=== PATIENT | female | born 1945 | race Caucasian/White ===

== ENCOUNTER 2017-07-29 10:23 | Emergency (ER) | payer MEDICARE, OTHER ==
[~2017-07-29] VITALS: Ht 172.7 cm; Wt 92.5 kg
[2017-07-29 10:31] VITALS: BP 155/80; PULSE 68; RESP 16; TEMP 97.6; O2SAT 99
[2017-07-29] MEDS ORDERED: SODIUM CHLOR 0.9% 1000 ML INJ 1,000 ML IV SCH (10:41)
[2017-07-29] MEDS ORDERED: SODIUM CHLORIDE 0.9% FLUSH 10 ML FLUSH IV FLUSH PRN (10:45)
--- NOTE | 2017-07-29 10:58 | PD ---
HPI Chief Complaint: Abdominal Pain Time Seen by Provider: 10:35 Travel History International Travel<30 days: No Contact w/Intl Traveler<30days: No Traveled to known affect area: No History of Present Illness HPI This is a 72-year-old female who presents to the emergency department with 2 days of right lower quadrant abdominal pain, constant, moderate severity, waxing and waning through the night time to keeping her up from sleep associated with an episode of vomiting yesterday and then multiple dry heaves this morning. She did have some "spaghetti like stool" this morning. She denies any fevers or chills. She has no appetite. She's never had pain like this before. She's never had any abdominal surgeries. [facility] Past Medical History Narrative Medical arthritis LMP: MENOPAUSAL Social History Tobacco Use: No Allergies-Medications (Allergen,Severity, Reaction): Coded Allergies: No Known Allergies (Unverified , 07/29/17) Reported Meds & Prescriptions Reported Meds & Active Scripts Active Reported Methotrexate 2.5 Mg Tab 10 Mg PO Q7D Evista (Raloxifene HCl) 60 Mg Tab 60 Mg PO DAILY Multi Vitamin Daily (Multiple Vitamin) 1 Tab Tab 1 Tab PO DAILY Hydrochlorothiazide 12.5 Mg Tab 12.5 Mg PO DAILY Folic Acid Unknown Strength Tab Unknown Dose PO DAILY Wellbutrin SR 12 HR (Bupropion HCl) 150 Mg Tab 150 Mg PO BID Amlodipine (Amlodipine Besylate) 2.5 Mg Tab 2.5 Mg PO DAILY Celebrex (Celecoxib) 200 Mg Cap 200 Mg PO DAILY Aspirin 81 (Aspirin) 81 Mg Tabdr 81 Mg PO DAILY Review of Systems Except as stated in HPI: all other systems reviewed are Neg Physical Exam Narrative GENERAL:Well appearing, no acute distress SKIN: Focused skin assessment warm and dry. HEAD: Atraumatic. Normocephalic. EYES: Pupils equal and round. No injection or drainage. ENT: Moist mucous membranes NECK: Trachea midline. CARDIOVASCULAR: Regular rate and rhythm. No murmur appreciated. RESPIRATORY: Clear to auscultation. Breath sounds equal bilaterally. GASTROINTESTINAL: Abdomen soft, mildly tender to palpation in the right lower quadrant with no rebound or guarding. [employer]ITATOR: No vaginal discharge, no cervical motion tenderness or adnexal tenderness MUSCULOSKELETAL: No obvious deformities. NEUROLOGICAL: Awake and alert. No obvious cranial nerve deficits. Moving all extremities. PSYCHIATRIC: Appropriate mood and affect; insight and judgment normal. Data Data Last Documented VS Vital Signs Date Time Temp Pulse Resp B/P (MAP) Pulse Ox O2 Delivery O2 Flow Rate FiO2 07/29/17 11:03 16 99 Room Air 07/29/17 10:31 97.6 68 155/80 (105) Orders Orders Complete Blood Count With Diff (07/29/17 10:41) Comprehensive Metabolic Panel (07/29/17 10:41) Urinalysis - C+S If Indicated (07/29/17 10:41) Ct Abd/Pel W Iv Contrast(Rout) (07/29/17 10:41) Iv Access Insert/Monitor (07/29/17 10:41) Ecg Monitoring (07/29/17 10:41) Oximetry (07/29/17 10:41) Sodium Chlor 0.9% 1000 Ml Inj (Ns 1000 M (07/29/17 10:41) Sodium Chloride 0.9% Flush (Ns Flush) (07/29/17 10:45) Iohexol 350 Inj (Omnipaque 350 Inj) (07/29/17 11:56) Us Pelvis Comp W Doppler (07/29/17 ) Cancer Antigen 125 (07/29/17 14:19) Labs Laboratory Tests Test 07/29/17 10:57 07/29/17 11:10 White Blood Count 10.8 TH/MM3 Red Blood Count 4.80 MIL/MM3 Hemoglobin 13.6 GM/DL Hematocrit 41.7 % Mean Corpuscular Volume 86.9 FL Mean Corpuscular Hemoglobin 28.4 PG Mean Corpuscular Hemoglobin Concent 32.7 % Red Cell Distribution Width 14.3 % Platelet Count 249 TH/MM3 Mean Platelet Volume 8.2 FL Neutrophils (%) (Auto) 84.9 % Lymphocytes (%) (Auto) 10.9 % Monocytes (%) (Auto) 2.3 % Eosinophils (%) (Auto) 0.7 % Basophils (%) (Auto) 1.2 % Neutrophils # (Auto) 9.1 TH/MM3 Lymphocytes # (Auto) 1.2 TH/MM3 Monocytes # (Auto) 0.2 TH/MM3 Eosinophils # (Auto) 0.1 TH/MM3 Basophils # (Auto) 0.1 TH/MM3 CBC Comment DIFF FINAL Differential Comment Blood Urea Nitrogen 20 MG/DL Creatinine 0.65 MG/DL Random Glucose 119 MG/DL Total Protein 7.7 GM/DL Albumin 3.7 GM/DL Calcium Level 9.0 MG/DL Alkaline Phosphatase 82 U/L Aspartate Amino Transf (AST/SGOT) 17 U/L Alanine Aminotransferase (ALT/SGPT) 28 U/L Total Bilirubin 0.4 MG/DL Sodium Level 139 MEQ/L Potassium Level 3.6 MEQ/L Chloride Level 103 MEQ/L Carbon Dioxide Level 29.0 MEQ/L Anion Gap 7 MEQ/L Estimat Glomerular Filtration Rate 90 ML/MIN Urine Collection Type VOIDED Urine Color YELLOW Urine Turbidity CLEAR Urine pH 7.0 Urine Specific Fifield 1.015 Urine Protein NEG mg/dL Urine Glucose (UA) NEG mg/dL Urine Ketones NEG mg/dL Urine Occult Blood NEG Urine Nitrite NEG Urine Bilirubin NEG Urine Leukocyte Esterase NEG Urine WBC 0-2 /hpf Urine Squamous Epithelial Cells 0-3 /hpf Microscopic Urinalysis Comment CULT NOT INDICATED MDM Medical Decision Making Medical Screen Exam Complete: Yes Emergency Medical Condition: Yes Interpretation(s) afebrile, no tachycardia no leukocytosis electrolytes within normal limits Urinalysis is negative for infection Last 24 hours Impressions Abdomen/Pelvis CT 07/29/17 1041 Signed Impressions: Service Date/Time: Saturday, July 29, 2017 11:49 - CONCLUSION: 1. Complex cystic mass posterior to the uterus measuring up to 7.1 x 4.2 cm in diameter. The differential diagnosis includes a complex ovarian lesion. A tubal ovarian abscess or diverticular abscess is also a consideration. 2. Fatty infiltration of the liver with areas of focal fatty sparing. 3. 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 4. Small hiatal hernia. Buddy Jarrett MD Pelvis Ultrasound 07/29/17 0000 Signed Impressions: Service Date/Time: Saturday, July 29, 2017 13:13 - CONCLUSION: 1. The right ovary is generous in size but no discrete mass is observed. Consideration could be made to an MRI to further evaluate this ovary to exclude occult mass. 2. Tubular fluid filled structure directly adjacent to the right ovary presumably relating to a hydrosalpinx. Low Laguna Jr., MD Differential Diagnosis Appendicitis, ovarian torsion, ovarian mass, diverticular abscess Narrative Course This is a 72-year-old female who presents to the emergency department with right lower quadrant abdominal pain. She's also been vomiting. Labs are reassuring and she is afebrile. CT of the abdomen and pelvis demonstrates a 4 x 7 cm area and the right lower quadrant which could be a diverticular abscess or an ovarian mass or tubo-ovarian abscess. Ultrasound demonstrates more proximity to the right ovary. I spoke to the on-call manager cost and she suspects that this is likely an ovarian cancer. Patient should follow-up promptly with gynecology as an outpatient. This was explained to her and she was told if she develops fever or new symptoms she should return to the emergency department. Diagnosis Primary Impression: Ovarian mass, right Referrals: Bridgette Wagner MD Patient Instructions: General Instructions Additional Instructions: If you develop severe or worsening abdominal pain, fever>100.4, persistent vomiting or inability to eat or drink return to the emergency department immediately. Follow up with your primary care physician in 1-2 days for a check-up. Med/Other Pt SpecificInfo: Prescription(s) given Scripts Tramadol (Tramadol) 50 Mg Tab 50 MG PO Q6H Y for PAIN, #15 TAB 0 Refills Prov: Nilam Ulloa MD 07/29/17 Disposition: 01 DISCHARGE HOME Condition: Stable Nilam Ulloa MD Jul 29, 2017 10:58
[2017-07-29 11:03] VITALS: RESP 16; O2SAT 99
[2017-07-29 11:13] LABS: AUTOMATED NEUTROPHIL # 9.1 TH/MM3 (1.8-7.7); BASOPHIL # 0.1 TH/MM3 (0-0.2); BASOPHIL % 1.2 % (0.0-2.0); EOSINOPHIL # 0.1 TH/MM3 (0-0.4); EOSINOPHIL % 0.7 % (0.0-4.0); HEMATOCRIT 41.7 % (35.0-46.0); HEMOGLOBIN 13.6 GM/DL (11.6-15.3); LYMPH % 10.9 % (9.0-44.0); LYMPHOCYTE # 1.2 TH/MM3 (1.0-4.8); MEAN CELL VOLUME 86.9 FL (80.0-100.0); MEAN CORPUSCULAR HEMOGLOBIN 28.4 PG (27.0-34.0); MEAN CORPUSCULAR HGB CONC 32.7 % (32.0-36.0); MEAN PLATELET VOLUME 8.2 FL (7.0-11.0); MONO % 2.3 % (0.0-8.0); MONOCYTE # 0.2 TH/MM3 (0-0.9); NEUT % 84.9 % (16.0-70.0); PLATELET COUNT 249 TH/MM3 (150-450); RED CELL DISTRIBUTION WIDTH 14.3 % (11.6-17.2); WHITE BLOOD COUNT 10.8 TH/MM3 (4.0-11.0)
[2017-07-29 11:18] LABS: BILIRUBIN, URINE NEG (NEG); BLOOD, URINE NEG (NEG); GLUCOSE,URINE NEG (NEG); KETONE, URINE NEG (NEG); NITRITE,URINE NEG (NEG); URINE LEUKOCYTE ESTERASE NEG (NEG)
[2017-07-29 11:22] LABS: CHLORIDE 103 MEQ/L (98-107); SODIUM (NA) 139 MEQ/L (136-145)
[2017-07-29 11:26] LABS: ALBUMIN 3.7 GM/DL (3.4-5.0); BLOOD UREA NITROGEN 20 MG/DL (7-18); GLUCOSE,RANDOM 119 MG/DL (74-106)
[2017-07-29 11:29] LABS: ALT (GPT) 28 U/L (10-53); AST (GOT) 17 U/L (15-37); CREATININE 0.65 MG/DL (0.50-1.00); GLOMERULAR FILTRATION RATE 90 ML/MIN (>89)
[2017-07-29] MEDS ORDERED: BUPR150CR PO (11:29)
[2017-07-29] MEDS ORDERED: CELE200C PO (11:29)
[2017-07-29] MEDS ORDERED: MULT1TAB46 PO (11:29)
[2017-07-29] MEDS ORDERED: HYDR12.56 PO (11:29)
[2017-07-29] MEDS ORDERED: FOLI400T PO (11:29)
[2017-07-29] MEDS ORDERED: METH2.5T PO (11:29)
[2017-07-29] MEDS ORDERED: EVIS60TA PO (11:29)
[2017-07-29] MEDS ORDERED: ASPI-110 PO (11:29)
[2017-07-29] MEDS ORDERED: AMLO2.5T PO (11:29)
[2017-07-29 11:31] LABS: TOTAL BILIRUBIN ADULT 0.4 MG/DL (0.2-1.0); TOTAL PROTEIN 7.7 GM/DL (6.4-8.2)
[2017-07-29 11:32] LABS: ALKALINE PHOSPHATASE 82 U/L (45-117)
[2017-07-29 11:39] LABS: URINE COLOR YELLOW (YELLW/STRAW)
[2017-07-29 11:41] LABS: WBC, URINE 0-2 /hpf (0-5)
[2017-07-29 11:42] LABS: SQUAMOUS EPITHELIAL CELL URINE 0-3 /hpf (0-5)
[2017-07-29] MEDS ORDERED: IOHEXOL 350 MG/ML 10 ML VIAL (for RAD DIAG) IVCONTRAST ONE (11:56)
[2017-07-29 12:00] VITALS: BP 147/75; PULSE 62; RESP 16
--- NOTE | 2017-07-29 12:10 | RADRPT ---
EXAM DATE/TIME: 07/29/2017 11:49 [facility] COMPARISON: No previous studies available for comparison. INDICATIONS : Right lower quadrant pain. IV CONTRAST: 90 cc Omnipaque 350 (iohexol) IV ORAL CONTRAST: No oral contrast ingested. RADIATION DOSE: 18.00 CTDIvol (mGy) MEDICAL HISTORY : Hypertension. SURGICAL HISTORY : None. ENCOUNTER: Initial ACUITY: 1 day PAIN SCALE: 5/10 LOCATION: Right lower quadrant TECHNIQUE: Volumetric scanning of the abdomen and pelvis was performed. Using automated exposure control and ad justment of the mA and/or kV according to patient size, radiation dose was kept as low as reasonably achievable to obtain optimal diagnostic quality images. DICOM format image data is available electro nically for review and comparison. FINDINGS: LOWER LUNGS: The visualized lower lungs are clear except for calcified granuloma in the left lower lobe. LIVER: Homogeneous density without lesion. There is no dilation of the biliary tree. No calcified gallston es. There is mild hepatic steatosis. There are areas of focal fatty sparing. SPLEEN: Normal size without lesion. There are multiple small calcified granulomas. PANCREAS: Within normal limits. KIDNEYS: Normal in size and shape. There are no renal calculi or hydronephrosis. There is a 1.3 cm angiomyoli dannielle in the left kidney measuring -61 Hounsfield units in density. There is a small cyst in left kidn ey as well. ADRENAL GLANDS: Within normal limits. VASCULAR: There is no aortic aneurysm. BOWEL/MESENTERY: There is a small hiatal hernia. No oral contrast was given limiting the sensitivity. The cecum and te rminal ileum appear unremarkable. The stomach, small bowel, and colon demonstrate no acute abnormalit y. There is no free intraperitoneal air or fluid. ABDOMINAL WALL: Within normal limits. RETROPERITONEUM: There is no lymphadenopathy. BLADDER: No wall thickening or mass. REPRODUCTIVE: There are calcified leiomyomas in the uterus. There is a complex cystic mass posterior to the uterus measuring up to approximately 7.1 x 4.2 cm in diameter. This contains cystic areas as well as ill-def ined apparent septations. No gas bubbles within the mass. There is no definite free fluid. INGUINAL: There is no lymphadenopathy or hernia. MUSCULOSKELETAL: Within normal limits for patient age. CONCLUSION: 1. Complex cystic mass posterior to the uterus measuring up to 7.1 x 4.2 cm in diameter. The differen tial diagnosis includes a complex ovarian lesion. A tubal ovarian abscess or diverticular abscess is also a consideration. 2. Fatty infiltration of the liver with areas of focal fatty sparing. 3. 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 4. Small hiatal hernia. Buddy Jarrett MD on July 29, 2017 at 12:04 Board Certified Radiologist. This report was verified electronically.
--- NOTE | 2017-07-29 13:56 | RADRPT ---
EXAM DATE/TIME: 07/29/2017 13:13 [facility] COMPARISON: No previous studies available for comparison. INDICATIONS : Pelvic pain. MEDICAL HISTORY : Arthritis. Hypertension. Pelvic pain. SURGICAL HISTORY : Tonsillectomy. Left breast lumpectomy. ENCOUNTER: Initial ACUITY: 2 days PAIN SCORE: 7/10 LOCATION: Bilateral pelvis MEASUREMENTS: UTERUS: 9.3 x 2.6 x 5.5 cm ENDOMETRIAL STRIPE: 2 mm RIGHT OVARY: 5.5 x 4.7 x 5.4 cm LEFT OVARY: 3.1 x 2.6 x 3.3 cm FINDINGS: UTERUS: The myometrium has homogeneous echotexture without mass. RIGHT OVARY: The right ovary is generous in size. No discrete mass is observed. Does have a heterogeneous echotext ure. Blood flow is normal. Directly adjacent to the right ovary is a tubular fluid-filled structure t hat measures 6.2 x 3.8 x 3.2 cm. No hyperemia. LEFT OVARY: Ovary contains no mass or significant cystic lesion. MISCELLANEOUS: No free fluid. CONCLUSION: 1. The right ovary is generous in size but no discrete mass is observed. Consideration could be made to an MRI to further evaluate this ovary to exclude occult mass. 2. Tubular fluid filled structure directly adjacent to the right ovary presumably relating to a hydro salpinx. Low Laguna Jr., MD on July 29, 2017 at 13:52 Board Certified Radiologist. This report was verified electronically.
[2017-07-29] MEDS ORDERED: TRAM50TA PO (14:34)
[2017-07-29 15:04] VITALS: BP 151/85
== END 2017-07-29 15:06 | disposition home or self-care (01) ==
LOC: PHED 10:23
DX: R19.09 Other intra-abdominal and pelvic swelling, mass and lump (principal); R10.31 Right lower quadrant pain; R11.10 Vomiting, unspecified; Z87.39 Personal history of other diseases of the musculoskeletal system and connective tissue
CPT/HCPCS: 74177; 76856; 80053; 81001; 85025; 86304; 93975; 96360; 99285; J7030; Q9967